=== PATIENT | female | born 1960 | race Caucasian/White ===

== ENCOUNTER → 2025-01-14 | Day surgery (SDC) | payer BC | END | disposition home or self-care (01) | LOC: JRADIR 10:58 | PROVIDERS: ATTEND Family Medicine Geriatric Medicine | PROC: 0G9K3ZX Drainage of Thyroid Gland, Percutaneous Approach, Diagnostic (ICD-10-PCS; principal; 2025-01-14) | DX: E04.2 Nontoxic multinodular goiter (principal) | CPT/HCPCS: 10005; 76942; 88173; 88305-TC ==